=== PATIENT | female | born 1975 | race Asian ===

== ENCOUNTER 2016-07-04 07:28 | Day surgery (SDC) | payer OTHER ==
[~2016-07-04] VITALS: Ht 170.2 cm; Wt 68.0 kg
== END 2016-07-04 11:22 | disposition home or self-care (01) ==
LOC: OR 07:28
PROC: 0DB68ZZ Excision of Stomach, Via Natural or Artificial Opening Endoscopic (ICD-10-PCS; principal; 2016-07-04)
DX: K29.60 Other gastritis without bleeding (principal); B96.81 Helicobacter pylori [H. pylori] as the cause of diseases classified elsewhere; R10.13 Epigastric pain; Z87.19 Personal history of other diseases of the digestive system
CPT/HCPCS: J2001; J2250; J2704

== ENCOUNTER 2017-07-16 07:54 | Day surgery (SDC) | payer OTHER ==
[2017-07-16 08:33] LABS: PLATELET COUNT 402 K/uL (152-353)
[2017-07-16 08:49] LABS: POTASSIUM 3.8 mmol/L (3.6-5.2)
== END 2017-07-16 10:22 | disposition home or self-care (01) ==
LOC: OR 07:54
PROVIDERS: Student in an Organized Health Care Education/Training Program
PROC: 0DB98ZZ Excision of Duodenum, Via Natural or Artificial Opening Endoscopic (ICD-10-PCS; principal; 2017-07-16)
PROC: 0DB68ZZ Excision of Stomach, Via Natural or Artificial Opening Endoscopic (ICD-10-PCS; 2017-07-16)
DX: K29.50 Unspecified chronic gastritis without bleeding (principal); K29.80 Duodenitis without bleeding; K31.84 Gastroparesis; R10.13 Epigastric pain; Z86.19 Personal history of other infectious and parasitic diseases
CPT/HCPCS: 80053; 85027; J2001; J2250; J2704

== ENCOUNTER 2019-03-03 15:00 | Outpatient (CLI) | payer OTHER | END 2019-03-03 20:13 | disposition home or self-care (01) | LOC: RAD 15:00 | DX: M54.2 Cervicalgia (principal) ==

== ENCOUNTER 2019-05-26 16:44 | Outpatient (CLI) | payer OTHER | END 2019-05-26 19:10 | disposition home or self-care (01) | LOC: RESP 16:44 | DX: R07.9 Chest pain, unspecified (principal) | CPT/HCPCS: 93306 ==

== ENCOUNTER 2019-05-27 08:42 | Outpatient (CLI) | payer OTHER ==
[~2019-05-27] VITALS: Ht 170.2 cm; Wt 95.3 kg
== END 2019-05-27 21:14 | disposition home or self-care (01) ==
LOC: NM 08:42
DX: R07.9 Chest pain, unspecified (principal)
CPT/HCPCS: A9500; J2785

== ENCOUNTER 2020-05-30 15:04 | Outpatient (CLI) | payer OTHER | END 2020-05-30 22:19 | disposition home or self-care (01) | LOC: RAD 15:04 | PROVIDERS: ATTEND Registered Nurse | DX: Z01.818 Encounter for other preprocedural examination (principal) ==

== ENCOUNTER 2022-12-23 15:22 | Observation (INO) | payer OTHER ==
[~2022-12-23] VITALS: Ht 170.2 cm; Wt 102.5 kg
[2022-12-23] VITALS (9 sets, daily range): BP systolic 112–192; BP diastolic 58–117; TEMP 98.1–98.8; Ht 170.2 cm; Wt 102.5 kg
[2022-12-23 16:34] LABS: PLATELET COUNT 286 K/uL (152-353)
[2022-12-23 16:39] LABS: POTASSIUM 3.4 mmol/L (3.6-5.2)
[2022-12-24 03:42] VITALS: BP 137/81; TEMP 98.7
[2022-12-24 04:46] LABS: PLATELET COUNT 287 K/uL (152-353)
[2022-12-24 05:48] LABS: POTASSIUM 3.5 mmol/L (3.6-5.2)
[2022-12-24 08:00] VITALS: BP 144/88; TEMP 98.6
[2022-12-24] MEDS ORDERED: FERROUS SULF325 MG PO (09:40)
[2022-12-24] MEDS ORDERED: CETI10TA PO (09:40)
[2022-12-24] MEDS ORDERED: DICYCLOMINE HYD20 MG PO (09:41)
[2022-12-24] MEDS ORDERED: PEPCID40 MG PO (09:42)
[2022-12-24] MEDS ORDERED: PROM25TA52 PO (09:42)
[2022-12-24] MEDS ORDERED: TYLENOL #4 PO (09:46)
[2022-12-24] MEDS ORDERED: PANTOPRAZOLE 40MG TA PO (09:46)
[2022-12-24] MEDS ORDERED: METO100T37 PO (09:47)
[2022-12-24] MEDS ORDERED: LISI20TA11 PO (09:47)
[2022-12-24] MEDS ORDERED: TOPAMAX50 MG PO (09:48)
[2022-12-24] MEDS ORDERED: DULO30CA PO (09:49)
[2022-12-24] MEDS ORDERED: CYCL10TA35 PO (09:49)
[2022-12-24] MEDS ORDERED: VANCOMYCIN HYD125 MG PO (09:50)
[2022-12-24] MEDS ORDERED: ESTRADIOL TOP (09:53)
[2022-12-24] MEDS ORDERED: ONDANSETRON ODT PO (09:53)
[2022-12-24] MEDS ORDERED: LACTULOSE10 GM/15 M PO (09:54)
[2022-12-24] MEDS ORDERED: AMLODIPINE BESYLATE PO (09:55)
[2022-12-24] MEDS ORDERED: PROM25SU RE (09:55)
[2022-12-24] MEDS ORDERED: SUMA100T PO (09:56)
[2022-12-24] MEDS ORDERED: GABA300C2 PO (09:56)
[2022-12-24] MEDS ORDERED: QUETIAPINE100 MG PO (09:56)
[2022-12-24] MEDS ORDERED: FLONASE AL50 MCG/ACT NAS (09:57)
[2022-12-24] MEDS ORDERED: OMEPRAZOLE DR20 MG PO (09:57)
[2022-12-24] MEDS ORDERED: METOCLOPRAM10 MG PO (09:58)
[2022-12-24] MEDS ORDERED: LEVOCETIRIZINE D5 MG PO (09:58)
[2022-12-24 12:02] VITALS: BP 149/88; TEMP 98.3
[2022-12-24 16:00] VITALS: BP 160/91; TEMP 97.3
[2022-12-24 19:31] VITALS: BP 136/82; TEMP 98.9
[2022-12-24 23:33] VITALS: BP 116/76; TEMP 98.4
[2022-12-25 03:44] VITALS: BP 134/77; TEMP 98.4
[2022-12-25 07:57] VITALS: BP 139/93; TEMP 98.3
[2022-12-25 12:00] VITALS: BP 137/86; TEMP 98.2
[2022-12-25 13:31] LABS: POTASSIUM 3.4 mmol/L (3.6-5.2)
[2022-12-25 16:00] VITALS: BP 147/91; TEMP 98.4
[2022-12-25 20:00] VITALS: BP 150/87; TEMP 98.8
[2022-12-25 23:50] VITALS: BP 127/80; TEMP 98.4
[2022-12-26 04:00] VITALS: BP 136/83; TEMP 98.5
[2022-12-26 08:00] VITALS: BP 136/78; TEMP 98.3
[2022-12-26 12:00] VITALS: BP 136/64; TEMP 98.6
== END 2022-12-26 13:30 | disposition home or self-care (01) ==
LOC: ED 15:22 → MED/SURG 18:41
PROVIDERS: Family Medicine; ADMIT Internal Medicine; ATTEND Internal Medicine
DX: A04.72 Enterocolitis due to Clostridium difficile, not specified as recurrent (principal); R11.2 Nausea with vomiting, unspecified; R19.7 Diarrhea, unspecified; R10.9 Unspecified abdominal pain; E87.6 Hypokalemia; I10 Essential (primary) hypertension
CPT/HCPCS: 36415; 80048; 80053; 81000; 82150; 82550; 83605; 83690; 83735; 84100; 84484; 85027; 93005; 96361; 96365; 96375; 96376; 99221; 99284; G0378; J0360; J0500; J1200; J2270; J2405; J2765; Q9963